=== PATIENT | male | born 1975 | race Caucasian/White ===

== ENCOUNTER 2016-10-08 03:39 | Emergency (ER) | payer SELFPAY ==
[~2016-10-08] VITALS: Ht 175.3 cm; Wt 118.2 kg
[2016-10-08] MEDS ORDERED: QUET25TA PO (03:48)
[2016-10-08] MEDS ORDERED: PERTUSS(ACELL),DIPH,TET VAC/PF 0.5 ML VIAL IM ONE (05:45)
[2016-10-08] MEDS ORDERED: LIDOCAINE HCL 1% 20 ML VIAL INJ ONE (06:15)
[2016-10-08] MEDS ORDERED: LIDOCAINE HCL 1% 10 ML VIAL INJ ONE (06:30)
[2016-10-08 07:03] VITALS: BP 122/81
== END 2016-10-08 07:30 | disposition home or self-care (01) ==
LOC: EMS 03:41
DX: S01.81XA Laceration without foreign body of other part of head, initial encounter (principal); S03.2XXA Dislocation of tooth, initial encounter; F32.9 Major depressive disorder, single episode, unspecified
CPT/HCPCS: 12011; 70450; 90471; 90715; 99284; J3490